=== PATIENT | male | born 1935 | race Caucasian/White ===

== ENCOUNTER 2022-08-06 10:15 | Day surgery (SDC) | payer MEDICARE ==
[~2022-08-06 10:15] MED LIST: DEXAMETHASONE SOD PHOSPHATE 4 MG/ML 1 ML VIAL IV ONE; HYDROmorphone 0.5 MG/0.5 ML SYRINGE IVP PRN; ONDANSETRON 4 MG/2 ML VIAL IVP ONE; ceFAZolin 1,000 MG in SODIUM CHLORIDE 0.9% IRRIGATIO 1,000 ML IRRIGATION PRN
[2022-08-06] MEDS: LACTATED RINGERS 1,000 ML IV SCH (11:00)
[2022-08-06] MEDS ORDERED: LIDOCAINE 1% (10MG/ML) FOR IV START INTRADERMA ONE (11:00)
[2022-08-06] MEDS ORDERED: MIDAZOLAM 2 MG/2 ML VIAL ONE (11:57)
[2022-08-06] MEDS ORDERED: SUCCINYLCHOLINE CHLORIDE 200 MG/10 ML VIAL IV ONE (11:57)
[2022-08-06] MEDS ORDERED: PROPOFOL 10 MG/ML 20 ML VIAL IV ONE (11:57)
[2022-08-06] MEDS ORDERED: PHENYLEPHRINE-0.9% NACL SYG 1,000 MCG/10 ML SYRINGE ONE (11:57)
[2022-08-06] MEDS ORDERED: fentaNYL (PF) 50 MCG/ML 2 ML AMP ONE (11:57)
[2022-08-06] MEDS ORDERED: LIDOCAINE 2% INJ 20 MG/ML (2 ML VIAL) ONE (11:57)
[2022-08-06] MEDS ORDERED: LIDOCAINE 1%-EPI 1:100,000 20 ML VIAL SQ ONE ×2 (12:10)
[2022-08-06] MEDS ORDERED: IOPAMIDOL M200 10 ML VIAL MISCELLANE ONE (12:10)
[2022-08-06] MEDS ORDERED: BUPIVACAINE (PF) 0.25% 30 ML VIAL SQ ONE ×2 (12:10)
[2022-08-06] MEDS ORDERED: LACTATED RINGERS 1,000 ML IV ONE (13:11)
[2022-08-06] MEDS ORDERED: HYDROmorphone 0.5 MG/0.5 ML SYRINGE IVP PRN (13:19)
[2022-08-06] MEDS ORDERED: ACETAMINOPHEN TAB 325 MG TAB PO PRN (13:19)
[2022-08-06] MEDS ORDERED: BENZOCAINE/MENTHOL LOZENG 1 EACH LOZENGE MUCOUS MEM PRN (13:19)
[2022-08-06] MEDS ORDERED: ONDANSETRON 4 MG/2 ML VIAL IVP PRN (13:19)
[2022-08-06] MEDS ORDERED: SENNOSIDES-DOCUSATE SODIUM 1 EACH TAB PO PRN (13:19)
[2022-08-06] MEDS ORDERED: DOCUSATE 100 MG CAP PO PRN (13:21)
[2022-08-06] MEDS ORDERED: HYDROcodone/APAP 7.5-325MG 1 EACH TAB PO PRN (13:21)
--- NOTE | 2022-08-06 13:28 | P.OP ---
Date of Procedure: 08/06/22 Preoperative Diagnosis: Vertebral compression fractures T12, L2, and L5, subacute and osteoporotic with mild trauma Exacerbation of low back pain Postoperative Diagnosis: Same Anesthesia: GETA Pathology: other (Vertebral body biopsy from T12 L2 and L5 each sent separately to pathology) Condition: stable Disposition: PACU Description of Procedure: BRIEF OPERATIVE NOTE Preoperative Diagnosis: Vertebral compression fractures T12, L2, and L5, subacute and osteoporotic with mild trauma Exacerbation of low back pain Postoperative Diagnosis: Same Procedure: Kyphoplasty at T12, L2 and L5 Vertebral body biopsy at T12, L2 and L5 Use of biplanar fluoroscopic guidance Surgeon: Dr. Beckwith Fish Agent: Fernando Greene is present throughout the entire the case persistence during positioning, dissection, exposure, visualization, and all crucial elements of the case as well as closure. Anesthesia: General anesthesia Estimated blood loss: Less than 10 mL Specimen: Vertebral body biopsy sent to pathology in formalin each separately from T12 L2 and L5 Complications: None apparent Components implanted: Bone cement at each level Disposition: To recovery room in good stable condition. OPERATIVE INDICATIONS The patient has been having issues in their back with severe worsening over the past several weeks. Patient had some mild falls at home and was found have multiple compression fractures. He had new evidence of fracture at T12 L2 and L5. An old fracture at L3 which had been treated with kyphoplasty in the past. He had significant disc degeneration facet arthritis and chronic changes lumbar spine as well. A new MRI showed active fractures at T12 L2 and L5 which correlated well with his back pain and worsening of his symptoms. The patient has been through conservative treatment. They attempted conservative care with bracing however they're not having any benefit despite brace use. They continue to have significant pain and debility due to their fracture. We discussed various treatment options including surgery, and the patient wishes to proceed with surgery We discussed the risk, patient's alternatives and benefits of surgery including but not limited to, risk of bleeding risk of infection, risk of need for further surgery, risk of decreased, loss of motion, loss of function, cement extravasation, nerve damage, paralysis, heart attack, blindness and . OPERATIVE SUMMARY After discussing all the risks, patient alternatives and benefits at length, the patient elected to proceed with surgical intervention, signed informed consent, and presented for their procedure. The patient was seen and examined in the preoperative holding area and the surgical site was marked. The patient was given antibiotics and brought to the operating room. The patient was sedated and intubated by anesthesia in standard fashion. The patient was positioned on to the operating room table in a prone position on the appropriate well-padded and well molded bilateral chest rolls. We were careful to pad any bony prominences and pressure points. We were careful to maintain the patient's cervical spine and good neutral alignment and position throughout. We used 2 C-arm machines to establish biplanar fluoroscopic guidance in AP and lateral positions. We were able to localize the fractures appropriately at T12 L2 and L5. The patient was prepped and draped in a normal standard fashion. An appropriate timeout and keystone protocol performed. We were able to proceed with the surgery. The local wound area was infiltrated with local anesthetic on the right side at each of the levels. An incision was made over the lateral aspect of the pedicle over the appropriate levels with a small 2 mm stab incision at each of the levels of T12 L2 and L5. Intraoperative fluoroscopy was taken which showed a marker at the appropriate levels. With the appropriate level positively confirmed, I was able to position a sharp trocar over the lateral aspect of the pedicle. As able to advance the trocar into the pedicle and into the posterior aspect of vertebral body being careful to avoid penetration cephalad caudad or medially. The trocar was placed appropriately into the posterior aspect of vertebral body at the appropriate levels. This was confirmed with C-arm guidance. This was done at each level of T12 L2 and L5 similarly With the trocar intact I was then able to take a bone biopsy with a biopsy punch or a bony drill. The biopsy specimen was passed off to be sent to pathology in formalin. I used a separate bone biopsy punch at each of the levels and specimen was sent off separately to pathology I was then able to place the kyphoplasty balloon within the vertebral body. The position was checked on C-arm. I was able to inflate the balloon under low pressure and visualization with C-arm. The balloon was well enclosed within the vertebral body. The cement was prepared. With the cement at appropriate working condition the balloons were deflated and removed. I was able to place bony cement with trocar with the cement delivery device under low pressure. It had good fill within the vertebral body. T12 had the most limited amount of cement spread, but we had excellent spread at both L2 and L5 There is no evidence of any extravasation of the cement posteriorly toward the canal. The cement was well contained at the appropriate levels at each T12 L2 and L5. The cement was allowed to cure appropriately. The trochars removed and final images were taken on C-arm. This showed the cement at the appropriate levels. We were able to proceed with closure. The wound was cleaned and dried and dressed with the appropriate dressing. The drapes were broken down. The patient was gently rolled back onto their hospital bed being careful to maintain their cervical spine and good neutral alignment and position. They were woken up by anesthesia, extubated, and brought to the recovery room in good stable condition. The patient will be admitted to the hospital for observation and for appropriate postoperative care, medical management and monitoring. We will continue to follow them closely about the postoperative course.
--- NOTE | 2022-08-06 14:05 | XR ---
Fluoroscopy HISTORY: Arthroplasty, compression fractures, pain 1 minute 24 seconds fluoroscopy time supplied to the referring clinician. 4 intraoperative C-arm amaya ges document the procedure. See dictated report from orthopedic surgery.
[2022-08-06] MEDS: SODIUM CHLORIDE 0.9% 1,000 ML IV SCH (17:22)
[2022-08-06] MEDS: HYDROcodone/APAP 7.5-325MG 1 EACH TAB PO PRN (18:05)
--- NOTE | 2022-08-06 18:40 | P.CONS ---
History of Present Illness - Reason for Consult Consult date: 08/06/22 CHF Requesting physician: Umm Beckwith - Chief Complaint back pain - History of Present Illness Patient is a 87-year-old male with atrial fibrillation, congestive heart failure, dyslipidemia, hypertension, and prior known bladder cancer who presented for elective kyphoplasty at T12, L2, and L5 with vertebral biopsy. Patient tolerated the procedure well and had no immediate postoperative complications. Patient seen and examined at bedside. Pain is a 6/10 and an ache. He feels like he is doing well. Denies any usual numbness or tingling. No chest pain, shortness of breath, nausea, or light headness. No recent illness. BP well controlled at home. Water Resource Manager is Dr. Foster from [facility]. Pertinent positives and negatives as discussed in HPI, a complete review of systems was performed and all other systems are negative. Vital signs reviewed General: nontoxic, no distress, appears at stated age Derm: warm, dry Head: atraumatic, normocephalic, symmetric Eyes: EOMI, no lid lag, anicteric sclera, pupils equal round reactive to light ENT: Nose and ears atraumatic, no thrush, no pharyngeal erythema Neck: No thyromegaly, no cervical lymphadenopathy, trachea midline, supple Mouth: no lip lesion, mucus membranes moist Cardiovascular: S1S2 reg, no murmur, positive posterior tibial pulse bilateral, no edema, capillary refill less than 2 seconds Lungs: clear to auscultation bilateral, no rhonchi, no rales, no wheeze, no accessory muscle use Abdominal: soft, nontender to palpation, no guarding, no appreciable organomegaly, normal bowel sounds Ext: no gross muscle atrophy, muscle strength 5 out of 5 upper extremities, no contractures Neuro: CN II-XII grossly intact, light touch intact all 4 extremities, finger to nose within normal limits, Psych: Alert, oriented, appropriate affect Assessment/Plan: 87-year-old male status post T12, L2, and L5 kyphoplasty. Postoperative management per ortho. Chronic congestive heart failure, unknown ejection fraction Paroxysmal atrial fibrillation with controlled ventricular response Hypertension Dyslipidemia -Continue with sotalol, lisinopril, Norvasc, and Lipitor -Follow blood pressures UTI, present prior to admission - complete course of keflex from home Hypothyrodisim - synthroid. Thank you for allowing us to participate in the care of this pleasant patient. Do not hesitate to contact us with questions. Someone can be reached from the [facility] hospitalist group all hours of the day at [phone] or via [employer]. Past Medical History Past Medical History: Atrial Fibrillation, Cancer, Heart Failure, Hyperlipidemia, Hypertension, Osteoarthritis (OA), Thyroid Disorder Additional Past Medical History / Comment(s): Hypertension and hypertensive cardiovascular disease, hypothyroidism, paroxysmal atrial fibrillation, hyperlipidemia, renal cancer status post left nephrectomy, bladder cancer status post cystoscopy and fulguration, goiter status post partial followed by complete thyroidectomy with thyroid cancer, osteoarthritis, overweight. History of Any Multi-Drug Resistant Organisms: None Reported Additional Past Surgical History / Comment(s): thyroidectomy, left nephrectomy, cystoscopy with bladder cancer fulguration, laser therapy for Rhinophyma. Past Anesthesia/Blood Transfusion Reactions: No Reported Reaction Past Psychological History: No Psychological Hx Reported Smoking Status: Former smoker Past Alcohol Use History: Occasional Additional Past Alcohol Use History / Comment(s): QUIT 35 YRS AGO Past Drug Use History: None Reported - Past Family History Sister(s) Daughter(s) Family Medical History: Cancer Mother Family Medical History: Osteoarthritis (OA) Father Family Medical History: Coronary Artery Disease (CAD) Brother(s) Family Medical History: Diabetes Mellitus Son(s) Family Medical History: Pulmonary Embolus Daughter(s) Family Medical History: No Reported History Medications and Allergies Home Medications Medication Instructions Recorded Confirmed Type amLODIPine [Norvasc] 10 mg PO QAM 03/22/15 08/04/22 History HYDROcodone/APAP 7.5-325MG [[place] 1 - 2 each PO Q6HR PRN #90 tab 04/04/15 08/04/22 Rx 7.5-325] Atorvastatin [Lipitor] 20 mg PO HS 08/04/22 08/04/22 History Cephalexin [Keflex] 500 mg PO TID 08/04/22 08/04/22 History Docusate [Colace] 100 mg PO BID PRN 08/04/22 08/04/22 History Levothyroxine Sodium [Synthroid] 175 mg PO QAM 08/04/22 08/04/22 History Sotalol [Betapace] 80 mg PO BID 08/04/22 08/04/22 History lisinopriL [Zestril] 20 mg PO QAM 08/04/22 08/04/22 History Allergies Allergy/AdvReac Type Severity Reaction Status Date / Time Tetanus Vaccines and Toxoid AdvReac extreme Verified 04/02/15 18:50 [Tetanus Vaccines & Toxoid] swelling @injection site Physical Exam Osteopathic Statement: *. No significant issues noted on an osteopathic structural exam other than those noted in the History and Physical/Consult. Vitals: Vital Signs Temp Pulse Resp BP Pulse Ox 08/06/22 16:26 97.8 F 87 18 138/90 97 08/06/22 15:30 100 16 133/93 95 08/06/22 15:00 98 16 149/77 95 08/06/22 14:30 84 16 137/80 95 08/06/22 14:15 76 16 137/75 95 08/06/22 14:00 71 16 140/75 95 08/06/22 13:45 72 16 118/81 96 08/06/22 13:39 64 16 118/72 96 08/06/22 13:24 65 15 124/76 96 08/06/22 10:48 97.7 F 87 16 140/82 97 Intake and Output 08/06/22 08/06/22 08/06/22 06:59 14:59 22:59 Intake Total 1251 Output Total 5 Balance 1246 Intake: IV 1251 Output: Estimated Blood Loss 5 Other: Weight 88 kg 88 kg
[2022-08-06] MEDS: SOTALOL 80 MG TAB PO SCH (20:36)
[2022-08-06] MEDS: CEPHALEXIN 500 MG CAP PO SCH ×2 (20:37→23:06)
[2022-08-06] MEDS ORDERED: ATORVASTATIN 20 MG TAB PO SCH (21:00)
[2022-08-07] MEDS: SODIUM CHLORIDE 0.9% 1,000 ML IV SCH (00:06)
[2022-08-07] MEDS: HYDROcodone/APAP 7.5-325MG 1 EACH TAB PO PRN ×2 (00:06→05:42)
[2022-08-07] MEDS: LACTATED RINGERS 1,000 ML IV SCH (01:44)
[2022-08-07] MEDS ORDERED: LEVOTHYROXINE 75 MCG TAB PO SCH (06:30)
[2022-08-07] MEDS ORDERED: LEVOTHYROXINE 100 MCG TAB PO SCH (06:30)
[2022-08-07 07:55] VITALS: BP 122/70; PULSE 72; RESP 16; TEMP 98.4
[2022-08-07] MEDS ORDERED: amLODIPine 10 MG TAB PO SCH (09:00)
[2022-08-07] MEDS ORDERED: lisinopriL 20 MG TAB PO SCH (09:00)
--- NOTE | 2022-08-07 09:10 | P.DS ---
Providers Date of admission: 08/06/22 Attending physician: Umm Beckwith Consults: 08/06/22 13:19 Consult Physician Routine Consulting Provider: Bria Moyer Consult Reason/Comments: Medical management Do you want consulting provider notified?: Yes Primary care physician: [facility] Course: The patient presented on the day of admission as per their operative note. He had multiple compression fractures and was having severe pain in his low back and underwent his kyphoplasty at T12 L2 and L5 yesterday as per his operative note. Today he feels he is doing much better. He feels like his hard significant pain is greatly improved, he is not having any changes in his lower extremities. He denies any pains or problems in his bowel bladder function. He has been eating his regular diet and mobile in the room with his walker and standby assist. Physical Exam The incision site is clean dry and intact. There is no erythema no drainage. There is no purulence no evidence of infection. There is no bleeding his back is clear Abdomen soft and nontender. Chest has good excursion with deep inspiration and expiration. The patient has active and passive range of motion intact at the upper and lower extremities. There is no acute change in neurologic status. Hospital Course Postoperative day #1 status post kyphoplasty and biopsy of T 12 L2 and L5 for his compression fractures and incapacitating pain in his low back. The patient is having significant improvement with his kyphoplasty and is happy with his results thus far. He has been able to increase his mobilization and decrease his medication requirement. It is okay for him to be discharged home today. The patient has been making good progress postoperatively. They have completed the prophylactic antibiotics without any signs or symptoms of infection. The patient has been able to advance their diet, and is tolerating diet adequately. The pain was initially controlled with IV medications and is now controlled appropriately with oral medications. The patient has been able to increase their mobilization. The patient has progressed appropriately. I think they are in good stable condition for discharge today. They will be sent home with appropriate prescriptions. I answered their questions to the best of my ability in a language that they can understand and they are agreeable with the plan. FVC and will likely start some formal physical therapy but at home for now he should just work on some easy mobilization and ambulation. He should continue to avoid any heavy or rigorous activity. They will follow up as directed. Patient Condition at Discharge: Good Plan - Discharge Summary Discharge Rx Participant: No New Discharge Prescriptions: New Hydrocodone/Acetaminophen [Hydrocodone/Acetaminophen 7.5-325] 1 each PO Q6HR 7 Days #28 tab No Action amLODIPine [Norvasc] 10 mg PO QAM HYDROcodone/APAP 7.5-325MG [[place] 7.5-325] 1 - 2 each PO Q6HR PRN #90 tab PRN Reason: Pain Levothyroxine Sodium [Synthroid] 175 mg PO QAM lisinopriL [Zestril] 20 mg PO QAM Cephalexin [Keflex] 500 mg PO TID Docusate [Colace] 100 mg PO BID PRN PRN Reason: Constipation Sotalol [Betapace] 80 mg PO BID Atorvastatin [Lipitor] 20 mg PO HS Discharge Medication List amLODIPine [Norvasc] 10 mg PO QAM 03/22/15 [History] HYDROcodone/APAP 7.5-325MG [[place] 7.5-325] 1 - 2 each PO Q6HR PRN #90 tab 04/04/15 [Rx] Atorvastatin [Lipitor] 20 mg PO HS 08/04/22 [History] Cephalexin [Keflex] 500 mg PO TID 08/04/22 [History] Docusate [Colace] 100 mg PO BID PRN 08/04/22 [History] Levothyroxine Sodium [Synthroid] 175 mg PO QAM 08/04/22 [History] Sotalol [Betapace] 80 mg PO BID 08/04/22 [History] lisinopriL [Zestril] 20 mg PO QAM 08/04/22 [History] Hydrocodone/Acetaminophen [Hydrocodone/Acetaminophen 7.5-325] 1 each PO Q6HR 7 Days #28 tab 08/07/22 [Rx] Follow up Appointment(s)/Referral(s): Umm Beckwith DO [Doctor of Osteopathic Medicine] - 2 Weeks Activity/Diet/Wound Care/Special Instructions: Keep site clean. May shower with waterproof Tegaderm intact. Do not soak in a tub. After 72 hours postoperatively, patient May remove dressing and then may shower with area uncovered. Leave glue intact and allow it to fray off on its own. May ambulate as tolerated. Avoid heavy or rigorous activity. No repetitive bending twisting or lifting. No overhead work. Discharge Disposition: HOME SELF-CARE
[2022-08-07] MEDS: CEPHALEXIN 500 MG CAP PO SCH (09:22)
[2022-08-07] MEDS: SOTALOL 80 MG TAB PO SCH (09:23)
== END 2022-08-07 11:00 | disposition home or self-care (01) ==
LOC: OR 10:15 → 4SSUR 13:24 → OR 08-07 11:00
PROVIDERS: ATTEND Orthopaedic Surgery Orthopaedic Surgery of the Spine
DX: S32.020A Wedge compression fracture of second lumbar vertebra, initial encounter for closed fracture (principal); E07.9 Disorder of thyroid, unspecified; E78.5 Hyperlipidemia, unspecified; I11.0 Hypertensive heart disease with heart failure; I48.0 Paroxysmal atrial fibrillation; I50.9 Heart failure, unspecified; M51.36 Other intervertebral disc degeneration, lumbar region; M81.0 Age-related osteoporosis without current pathological fracture; N39.0 Urinary tract infection, site not specified; Z82.49 Family history of ischemic heart disease and other diseases of the circulatory system; Z83.3 Family history of diabetes mellitus; Z85.51 Personal history of malignant neoplasm of bladder
CPT/HCPCS: 22513; 97161; 88342; 88307; 88311; 88341; 72100; C1713; J2250; J0330; J0690 ×3; J2405; J3010; J2370; J2704; J1170; Q9966; J2001